=== PATIENT | male | born 1945 | race Two or more races ===

== ENCOUNTER 2018-02-18 07:29 | Outpatient (CLI) | payer OTHER ==
[~2018-02-18 07:29] MED LIST: ASA81 MG PO; ISOSORBIDE; LIPITOR; NO; RAMIPRIL
== END 2018-02-18 07:42 | disposition home or self-care (01) ==
LOC: NUCLEAR 07:29
DX: I25.10 Atherosclerotic heart disease of native coronary artery without angina pectoris (principal); I20.0 Unstable angina
CPT/HCPCS: 78452; 93017; A9500

== ENCOUNTER → 2022-05-06 | Emergency (ER) | payer OTHER ==
[~2022-05-06] VITALS: Ht 172.7 cm; Wt 79.8 kg
[~2022-05-06] MED LIST changes: +COZAAR25 MG PO; +RAMIPRIL2.5 MG PO
== END | disposition home or self-care (01) ==
LOC: ER 02:17
DX: N13.2 Hydronephrosis with renal and ureteral calculous obstruction (principal); N28.1 Cyst of kidney, acquired; K59.00 Constipation, unspecified; K57.90 Diverticulosis of intestine, part unspecified, without perforation or abscess without bleeding

== ENCOUNTER 2022-06-06 07:15 | Inpatient (IN) | payer OTHER ==
[~2022-06-06] VITALS: Ht 172.7 cm; Wt 79.8 kg
[2022-06-06] MEDS ORDERED: EZETIMIBE PO (08:26)
[2022-06-06] MEDS ORDERED: CRESTOR40 MG PO (08:26)
[2022-06-10] MEDS ORDERED: COLACE100 MG PO (13:19)
[2022-06-10] MEDS ORDERED: NEURONTIN800 MG PO (13:20)
[2022-06-10] MEDS ORDERED: MEDROLPACK PO (13:22)
[2022-06-10] MEDS ORDERED: PERCOCET 5-3251 EACH PO (13:22)
[2022-06-10] MEDS ORDERED: AMOX-CLAV 875-1 EACH PO (13:22)
== END 2022-06-12 11:38 | disposition home or self-care (01) | DRG 455 ==
LOC: SURH 06-10 07:15 → O/R 06-10 07:18 → PED 06-10 07:18 → SURH 06-10 17:00 → PED 06-10 19:56
PROVIDERS: ADMIT Orthopaedic Surgery Orthopaedic Surgery of the Spine; ATTEND Orthopaedic Surgery Orthopaedic Surgery of the Spine
PROC: 0SG1071 Fusion of 2 or more Lumbar Vertebral Joints with Autologous Tissue Substitute, Posterior Approach, Posterior Column, Open Approach (ICD-10-PCS; 2022-06-10)
PROC: 0ST20ZZ Resection of Lumbar Vertebral Disc, Open Approach (ICD-10-PCS; 2022-06-10)
PROC: 07DR0ZZ Extraction of Iliac Bone Marrow, Open Approach (ICD-10-PCS; 2022-06-10)
PROC: XRGC0R7 Fusion of 2 or more Lumbar Vertebral Joints using Custom-Made Anatomically Designed Interbody Fusion Device, Open Approach, New Technology Group 7 (ICD-10-PCS; principal; 2022-06-10 17:00)
DX: M43.16 Spondylolisthesis, lumbar region (principal); M48.062 Spinal stenosis, lumbar region with neurogenic claudication; M41.56 Other secondary scoliosis, lumbar region; M51.36 Other intervertebral disc degeneration, lumbar region

== ENCOUNTER 2022-07-08 08:38 | Outpatient (CLI) | payer OTHER ==
[~2022-07-08 08:38] MED LIST changes: +AMOX-CLAV 875-1 EACH PO; +COLACE100 MG PO; +CRESTOR40 MG PO; +EZETIMIBE PO; +MEDROLPACK PO; +NEURONTIN800 MG PO; +PERCOCET 5-3251 EACH PO
== END 2022-07-08 08:41 | disposition home or self-care (01) ==
LOC: SONOGRAMA 08:38
PROVIDERS: ATTEND Urology
DX: N20.1 Calculus of ureter (principal); Z98.1 Arthrodesis status

== ENCOUNTER 2022-08-24 23:00 | Emergency (ER) | payer OTHER ==
[~2022-08-24] VITALS: Ht 172.7 cm; Wt 79.8 kg
[2022-08-25] MEDS ORDERED: CIPRO500 MG PO (03:36)
[2022-08-25] MEDS ORDERED: TAMS0.4C PO (03:36)
[2022-08-25] MEDS ORDERED: KETO10TA2 PO (03:36)
== END 2022-08-25 03:54 | disposition home or self-care (01) ==
LOC: ER 23:00
DX: N20.9 Urinary calculus, unspecified (principal); I10 Essential (primary) hypertension; M79.662 Pain in left lower leg; M79.661 Pain in right lower leg; I87.2 Venous insufficiency (chronic) (peripheral)

== ENCOUNTER 2022-11-05 10:22 | Emergency (ER) | payer OTHER ==
[~2022-11-05] VITALS: Ht 172.7 cm; Wt 78.5 kg
[~2022-11-05 10:22] MED LIST changes: +CIPRO500 MG PO; +KETO10TA2 PO; +TAMS0.4C PO
[2022-11-05] MEDS ORDERED: CIPRO500 MG PO (14:24)
[2022-11-05] MEDS ORDERED: KETO10TA2 PO (14:24)
[2022-11-05] MEDS ORDERED: TAMS0.4C PO (14:24)
== END 2022-11-05 14:53 | disposition home or self-care (01) ==
LOC: ER 10:22
DX: R10.9 Unspecified abdominal pain (principal); I11.9 Hypertensive heart disease without heart failure; Z87.442 Personal history of urinary calculi; K57.30 Diverticulosis of large intestine without perforation or abscess without bleeding; N13.2 Hydronephrosis with renal and ureteral calculous obstruction; I71.40 Abdominal aortic aneurysm, without rupture, unspecified

== ENCOUNTER 2024-09-23 16:45 | Outpatient (CLI) | payer OTHER | END 2024-09-23 17:00 | disposition home or self-care (01) | LOC: MRI 16:45 | DX: Z98.1 Arthrodesis status (principal) | CPT/HCPCS: 72148 ==